=== PATIENT | female | born 1940 | race Caucasian/White ===

== ENCOUNTER 2020-01-26 09:59 | Emergency (ER) | payer MEDICARE ==
[2020-01-26] VITALS (8 sets, daily range): BP systolic 130–152; BP diastolic 63–87
[~2020-01-26] VITALS: Ht 152.4 cm; Wt 68.0 kg
--- NOTE | 2020-01-26 10:07 | NUR ---
ED Nurse Note: Pt fell at home while trying to take out trash. Pt fell on R arm and has possible injury. Denies hitting head. Pt is alert and orientedx4, ambulatory with assist. Pt R arm is swollen, pain is 7/10, cap refill less than 3 sec.
[2020-01-26] MEDS ORDERED: Morphine Sulfate 2mg/ml Inj(IV/IM USE ONLY) IM ONE (10:15)
--- NOTE | 2020-01-26 10:17 | Emergency Room Report ---
History of Present Illness General Chief Complaint: Multiple Trauma/Fall Source: Patient Present Illness HPI Disclaimer: Please note that this report is being documented using DRAGON technology. This can lead to erroneous entry secondary to incorrect interpretation by the dictating instrument. HPI: 79-year-old [id number] female presents for evaluation of right wrist injury. She was taking out the trash losing her balance falling backwards onto an outstretched right hand. Noted immediate pain and deformity and swelling in the right wrist. Denies numbness, tingling or change in sensation. Able to move all digits though extreme pain in the wrist is noted. Denies injury or pain in the elbow, shoulder. There is no head injury or loss of consciousness. No prior history of injury to the wrist but she did have shoulder surgery approximately 1 year ago on the same side. No other injury reported. Takes no medications otherwise in her usual state of health without any recent fevers, chills, chest pain, shortness of breath, vomiting, diarrhea or other symptoms reported. PMH: Denies PSH: Right shoulder repair, tonsillectomy Allergies: Denies Social Hx: Denies Allergies: Coded Allergies: No Known Allergies (Unverified , 01/26/20) Review of Systems All Other Systems: negative except mentioned in HPI Physical Exam General: Awake and alert, no acute distress HEENT: NC/AT. EOMI. Resp: Normal work of breathing Skin: Intact. No abrasions, laceration or rash over the exposed skin MSK: Normal tone and bulk. Moving all extremities. There is a deformity over the dorsal surface of the right wrist. Palpable radial pulse and brisk capillary refill in all digits. Able to flex and extend all digits on the right hand. Able to pronate and supinate as well as flex at the elbow. Neuro: Awake and alert. Mentating appropriately. Sensation intact over the radial and ulnar aspects of the digits on the right hand. Procedures Splinting Splinting : Consent: Written Hand-Made Type: plaster Splint: sugar-tong Pre-Proc Neuro Vasc Exam: normal Post-Proc Neuro Vasc Exam: normal Patient Tolerated: Well Complications: None Joint Reduction Joint Reduction : Consent: Written Joint Reduction Site: wrist (R) Procedural Sedation: Yes Reduction Attempts: One Pre-Procedure NV Exam: Yes Post-Procedure NV Exam: Yes Post Joint Reduction Film: joint reduced Patient Tolerated: Well Complications: None Procedural Sedation Consent: Written Time out called at: 12:28 Pre-Sedation Assessment: Eval. Immed. Prior to Sed, Pre-proc Edu. done, Plan for Sedation Discuss Airway Assessment (Malampati): I Heart: normal Lungs: normal Procedures/Plans: Closed Reduction Plan for Moderate Sedation: Propofol ASA Score: I Procedure Narrative Patient underwent moderate sedation using 70 mg of propofol for closed reduction of a right Colles' fracture. Tolerated procedure well. No complications. Return to neurologic baseline following procedure. No vomiting. Return to room air without difficulty. Start Time: 12:29 End Time: 12:45 Communication: No Apparent Limitation Mental Status: Awake Respiration: Unlabored Skin Condition: WNL Nausea: NO Additional Procedure Procedure Narrative Hematoma block: Dorsal aspect of the right wrist was sterilized using chlorhexidine prep. Needle was advanced towards hematoma negative pressure held until bright red blood return in the syringe. Approximately 10 cc of 2% lidocaine were injected. No bleeding. No complication. The patient was neurovascularly intact at the start and end of the procedure. Medical Decision Making Diagnostic Impression: Primary Impression: Fracture, Colles, right, closed Additional Impression: Fracture of ulnar styloid ER Course 79-year-old female presenting for evaluation of right wrist deformity after a fall. Concern for fracture and dislocation x-ray was obtained showing a moderately displaced Colles' fracture as well as a ulnar styloid fracture. Patient had a hematoma block for pain control and then underwent procedural sedation using propofol without complications for closed reduction. Patient was placed in a sugar tong splint with satisfactory reduction of the Colles' fracture. Tolerated procedure well with no complications. She is awake and alert and back to her neurologic baseline. Patient is neurovascularly intact in the right upper extremity. Discussed case with Dr. Del Cid and will be referred to him to follow-up on an outpatient basis. Patient will be placed in a sling and discharged to follow-up on an outpatient basis. Discussed reasons to return to the emergency room as well as proper splint care. She understands and agrees with this treatment plan. Other X-Ray Diagnostic Results Other X-Ray Diagnostic Results #1: X-Ray ordered: Right wrist # of Views/Limited Vs Complete: 3 View Indication: Pain EP Interpretation: Yes Interpretation: other - Right Colles' fracture with ulnar styloid fracture Impression: Other - Right Colles' fracture with ulnar styloid fracture Electronically Signed by: Electronically signed by Dr. Ash Jason Other X-Ray Diagnostic Results #2: X-Ray ordered: Right wrist post reduction # of Views/Limited Vs Complete: Complete Indication: Pain EP Interpretation: Yes Interpretation: other - Improved alignment of distal radius fracture. Ulnar styloid fracture seen again Impression: Other Electronically Signed by: Electronically signed by Dr. Ash Jason Disposition: HOME, SELF-CARE Condition: Improved Scripts Ibuprofen* (MOTRIN*) 600 Mg Tablet 600 MG ORAL Q6H PRN for For Pain, #30 TAB 0 Refills Prov: Ash Jason MD 01/26/20 Hydrocodone Bit/Acetaminophen 5-325* (NORCO 5-325 TABLET*) 1 Each Tablet 1 TAB ORAL Q4H PRN for For Pain, #15 TAB Prov: Ash Jason MD 01/26/20 Ash Jason MD Jan 26, 2020 10:17
--- NOTE | 2020-01-26 10:18 | NUR ---
ED Nurse Note: Patient does not recall her meds.
[2020-01-26] MEDS ORDERED: Lidocaine 2% MPF 5ml Vial INJ ONE (10:30)
--- NOTE | 2020-01-26 11:07 | Diagnostic Imaging Report ---
Indication: Wrist pain status post injury Technique: 3 views of the right wrist Comparison: None Findings: Bones are diffusely demineralized. There is an acute impacted, comminuted and angulated fracture of the distal radius. There is also an acute fracture of the ulna at the base of the styloid. There is overlying soft tissue swelling. IMPRESSION: Acute, comminuted and impacted fracture of the distal radius. Acute fracture of the distal ulna at the base of the styloid.
[2020-01-26] MEDS ORDERED: Propofol 200mg/20ml IV ONE (11:45)
[2020-01-26] MEDS ORDERED: Morphine Sulfate 4mg/ml Inj (IV USE ONLY) IVP ONE (11:45)
--- NOTE | 2020-01-26 12:28 | NUR ---
ED Nurse Note: Moderate sedation preocedure on R wrist began 1228. 2 RN, RT Renae, Dr Jason, [facility] present at bedside. Pt given 70 mg of propofol via IV. Pt after administration is awake and arousable to verbal stimuli. Refer to mod sedation charting.
--- NOTE | 2020-01-26 13:42 | NUR ---
ED Nurse Note: 130 mg Propofol wasted with RN Teri.
[2020-01-26] MEDS ORDERED: NORCO 5-325 TA1 EAC1 ORAL ×3 (14:08→14:58)
[2020-01-26] MEDS ORDERED: IBUPROFEN600 M1 ORAL ×3 (14:08→14:58)
--- NOTE | 2020-01-26 14:23 | Diagnostic Imaging Report ---
Indication: Wrist pain, fracture status post reduction Technique: 3 views of the right wrist Comparison: Earlier the same day Findings: Interval external reduction and casting of the previously documented fractures of the distal radius and ulna. There is improved alignment status post external reduction. No new fractures identified. IMPRESSION: Fractures of the distal radius and ulna with improved alignment status post external reduction and casting.
--- NOTE | 2020-01-26 14:39 | NUR ---
ED Nurse Note: Dr Jason aware that pt has no ride home. states that pt can stay longer until more stable and take a cab home.
--- NOTE | 2020-01-26 15:20 | NUR ---
ED Nurse Note: MAHSA and arielle working on cab for pt.
--- NOTE | 2020-01-26 16:06 | NUR ---
ER DISCHARGE NOTE: Patient is cleared to be discharged per ERMD, pt is aox4, on room air, with stable vital signs. pt was given dc and prescription instructions, pt was able to verbalize understanding, pt id band and iv site removed without complications. pt is able to ambulate with steady gait. pt took all belongings. Pt went home on cab with voucher. Pt has sling and cast on. Pulses 3+ bilateral radial, no discoloration, no numbness or tingling.
== END 2020-01-26 16:12 | disposition home or self-care (01) ==
LOC: EMR 10:35
DX: S52.501A Unspecified fracture of the lower end of right radius, initial encounter for closed fracture (principal); S52.611A Displaced fracture of right ulna styloid process, initial encounter for closed fracture; W19.XXXA Unspecified fall, initial encounter; Y92.9 Unspecified place or not applicable
CPT/HCPCS: 25605; 73110; 96372; 96374; 99284; J2270; J2704